=== PATIENT | female | born 1995 | race African-American/Black ===

== ENCOUNTER 2021-01-01 05:19 | Emergency (ER) | payer MEDICAID ==
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
[2021-01-01 07:21] LABS: ACETAMINOPHEN 0 ug/mL (10-30)
== END 2021-01-01 08:21 | disposition home or self-care (01) ==
LOC: JD.ED 05:19
DX: O99.343 Other mental disorders complicating pregnancy, third trimester (principal); F43.10 Post-traumatic stress disorder, unspecified; Z3A.30 30 weeks gestation of pregnancy; Z88.0 Allergy status to penicillin
CPT/HCPCS: 36415; 80053; 80143; 80179; 80307; 84443; 85025; 99284

== ENCOUNTER 2021-03-08 16:48 | Inpatient (IN) | payer MEDICAID ==
[2021-03-08] MEDS ORDERED: Calcium Carbonate 500 MG Tab.Chew PO PRN (19:17)
[2021-03-08] MEDS ORDERED: Sodium Chloride 0.9% 10 ML Syringe FLUSH PRN (19:17)
[2021-03-08] MEDS ORDERED: Nalbuphine 10 MG/1 ML Vial IVPUSH PRN (19:17)
[2021-03-08] MEDS ORDERED: Ondansetron 4 MG/2 ML SDV IVPUSH PRN (19:17)
[2021-03-08] MEDS ORDERED: Oxytocin/Lactated Ringers 10 UNIT/1,000 ML BAG IV SCH (19:30)
[2021-03-08] MEDS ORDERED: Misoprostol 25 MCG (1/4 of 100 MCG) Tab VAG ONE (20:00)
[2021-03-08] MEDS ORDERED: fentaNYL 100 MCG/2 ML SDV EPIDUR PRN (20:23)
[2021-03-08] MEDS ORDERED: Bupivacaine/fentaNYL/NS 100 ML Bag EPIDUR PRN (20:23)
[2021-03-08] MEDS ORDERED: ePHEDrine 50 MG/ML SDV IVPUSH PRN (20:23)
[2021-03-08] MEDS ORDERED: diphenhydrAMINE 50 MG/ML SDV IVPUSH PRN (20:23)
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
[2021-03-09] MEDS ORDERED: Misoprostol 25 MCG (1/4 of 100 MCG) Tab VAG SCH
[2021-03-09] MEDS: Misoprostol 25 MCG (1/4 of 100 MCG) Tab VAG SCH ×2 (00:47→05:11)
[2021-03-09] MEDS ORDERED: Oxytocin/Lactated Ringers 10 UNIT/1,000 ML BAG IV SCH (03:00)
[2021-03-09] MEDS: Lactated Ringers 1,000 ML IV SCH ×2 (07:27→08:30)
[2021-03-09] MEDS ORDERED: Nalbuphine 10 MG/1 ML Vial IVPUSH PRN (09:24)
--- NOTE | 2021-03-09 09:33 | PCM.SN.2 ---
- Free Text/Narrative Note: Progress note: Patient in labor. Has had 3 dose of Cytotec. Is tristan every 2 to 3 minutes. Mild in nature. Evaluation shows patient be comfortable. Vital signs are stable. Patient is afebrile. Abdomen is protuberant with fundal height consistent with dates. Baby in vertex presentation. Cervix is 2 cm, 80% effaced, soft, -3 station but well applied to the cervix, soft. AROM is accomplished with resultant mildly meconium stained amniotic fluid. heart tones are reassuring. Assessment: 39-1/7-week intrauterine , induction of labor going reasonably well. Small amount of progress noted. 2. Very mildly meconium-stained amniotic fluid. heart tones reassuring. Plan: 1. Monitor patient's progression if normal increase in intensity of contractions noted will start Pitocin augmentation. 2. Anticipate . Time Documentation
[2021-03-09] MEDS ORDERED: ePHEDrine 50 MG/ML SDV IVPUSH PRN ×2 (10:35→17:53)
[2021-03-09] MEDS ORDERED: diphenhydrAMINE 50 MG/ML SDV IVPUSH PRN ×3 (10:35→17:53)
[2021-03-09] MEDS ORDERED: Bupivacaine/fentaNYL/NS 100 ML Bag EPIDUR PRN (10:35)
[2021-03-09] MEDS ORDERED: fentaNYL 100 MCG/2 ML SDV EPIDUR PRN (10:35)
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
[2021-03-09] MEDS ORDERED: Metoclopramide 10 MG/2 ML SDV ONE (16:26)
[2021-03-09] MEDS ORDERED: Citric Acid/Sodium Citrate Solution 30 ML Cup ONE (16:26)
[2021-03-09] MEDS ORDERED: Terbutaline 1 MG/ML SDV ONE (16:27)
[2021-03-09] MEDS ORDERED: Azithromycin 500 MG in Sodium Chloride 0.9% 250 ML IV ONE (16:38)
[2021-03-09] MEDS ORDERED: Bupivacaine 0.5% 30 ML SDV ONE (16:44)
[2021-03-09] MEDS ORDERED: ceFAZolin 1 GM Vial ONE (16:47)
[2021-03-09] MEDS ORDERED: Lidocaine 2% with EPINEPHrine 1:200,000 20 ML SDV ONE (16:47)
[2021-03-09] MEDS ORDERED: Ondansetron 4 MG/2 ML SDV ONE (16:49)
[2021-03-09] MEDS ORDERED: Ketorolac 30 MG/ML SDV ONE (16:49)
[2021-03-09] MEDS ORDERED: Methylergonovine 0.2 MG/1 ML Amp ONE (16:57)
[2021-03-09] MEDS ORDERED: Bupivacaine 0.25% 10 ML SDV ONE (17:00)
[2021-03-09] MEDS ORDERED: Sodium Bicarbonate 8.4% 50 MEQ/50 ML SDV ONE (17:09)
[2021-03-09] MEDS ORDERED: Morphine PF 10 MG/10 ML SDV ONE (17:14)
[2021-03-09] MEDS ORDERED: Ondansetron 4 MG/2 ML SDV IVPUSH PRN (17:34)
[2021-03-09] MEDS ORDERED: fentaNYL 100 MCG/2 ML SDV IVPUSH PRN (17:34)
[2021-03-09] MEDS ORDERED: Meperidine 50 MG/ML Vial IVPUSH PRN (17:34)
[2021-03-09] MEDS ORDERED: Lactated Ringers 1,000 ML ONE (17:45)
[2021-03-09] MEDS ORDERED: Docusate Sodium 100 MG Cap PO PRN (17:53)
[2021-03-09] MEDS ORDERED: Ondansetron 4 MG/2 ML SDV IV PRN (17:53)
[2021-03-09] MEDS ORDERED: Naloxone 0.4 MG/ML SDV IVPUSH PRN (17:53)
[2021-03-09] MEDS ORDERED: Acetaminophen/oxyCODONE 325-5 MG Tab PO PRN (17:53)
--- NOTE | 2021-03-09 17:55 | PCM.POSTAN ---
POST ANESTHESIA ASSESSMENT - MENTAL STATUS Mental Status: Alert, Oriented - VITAL SIGNS Vital Signs: Last Vital Signs Temp 97.1 F 03/09/21 17:40 Pulse 98 03/09/21 17:40 Resp 12 03/09/21 17:53 BP 125/62 03/09/21 17:40 Pulse Ox 92 L 03/09/21 17:53 - RESPIRATORY Respiratory Status: Respiratory Rate WNL, Airway Patent, O2 Saturation Stable - CARDIOVASCULAR CV Status: Pulse Rate WNL, Blood Pressure Stable - GASTROINTESTINAL GI Status: No Symptoms - PAIN Pain Score: 0 - POST OP HYDRATION Hydration Status: Adequate & Stable
[2021-03-09] MEDS ORDERED: Dextrose 5%-Lactated Ringers 1,000 ML IV SCH (18:00)
[2021-03-09] MEDS ORDERED: Ibuprofen 800 MG Tab PO SCH (18:00)
--- NOTE | 2021-03-09 18:06 | PCM.OPNOTE ---
- General Post-Op/Procedure Note Date of Surgery/Procedure: 03/09/21 Operative Procedure(s): Primary low uterine segment transverse section through Pfannenstiel skin incision Findings: Preoperatively patient was noted to have heart rate 49 to 50 bpm rate. Scalp electrode was applied and confirmed rate. Ultrasound was also done at bedside. He was down for approximately 2 to 3 minutes at which time decision was made to proceed to stat section. Procedure was discussed very briefly with the patient and her significant other inccluding the need for expeditious delivery of the baby. Appeared to understand the potential risks and benefits for her and the baby. She gave verbal approval. Consent was signed after the section was performed. Uterus, tubes and ovaries were consistent with normal term . Amniotic fluid showed mildly. The baby is noted to have umbilical cord moderately tight around the neck x3. Baby weighed 8 pounds 4 ounces (3750 g). Baby had Apgars of 8 and 9 and was born at 1644 hrs. Baby was female. Pre Op Diagnosis: 1. 39-1/7-week intrauterine . 2. Nonreassuring heart tonesfetal intolerance of labor Post-Op Diagnosis: Same Primary Surgeon: Mamadou Herron Anesthesia Provider: Agnes Serrano Fluid Replacement, Intraop: 1,000 EBL in mLs: 1,200 Drain/Tube Comments:: Bladder catheter Complications: None Condition: Good Free Text/Narrative:: Intake & Output 03/09/21 03/09/21 03/09/21 06:59 14:59 22:59 Intake Total 120 Balance 120 Surgery duration: 28 minutes: Surgery duration: Procedure: The patient is appropriately consented. Patient was transferred to the room and placed in a sitting position. Spinal anesthesia was administered. After confirmation of adequate anesthesia patient was placed in a supine position with a wedge under her right side to facilitate left lateral positioning. The patient was prepped and draped in usual fashion after Jackson catheter was already placed . The anesthetic was checked and found to be adequate. 20 mL of Marcaine 0.5% was injected locally in the Pfannenstiel incision site. The Pfannenstiel skin incision was then made and carried down through skin, subcutaneous and fascial layers. The fascia was then undermined superiorly and inferiorly to allow for adequate operating room. The recti muscles midline and preperitoneal fat was bluntly dissected. Perito johanna cavity was entered longitudinally. The vesicouterine peritoneum was then incised transversely and bladder flap was developed. Myometrium was incised transversely to the level of the amniotic sac. This incision was extended bilaterally in a blunt fashion. The amniotic sac was then ruptured resulting in clear amniotic fluid. A hand is placed in the low uterine segment and the baby's head was brought forth through the incision. The baby was completely delivered using fundal pressure in a routine fashion. The nose and mouth were bulb suctioned. Baby's cord was clamped x2 cut and baby was handed off to attending cryptologist Dr Durán. Placenta was expressed after cord blood was obtained. Uterus was then exteriorized to allow for easier closure. The cervix was assessed and found to be dilated adequately to allow egress of blood. The uterus was closed in 2 layers. The first layer a running locked suture of 0 Monocryl, the second layer a running locked vertical mattress suture of 0 Monocryl. Hemostasis confirmed at this time. Sponge instrument needle counts are correct. The uterus was returned to the abdominal cavity and lateral gutters were cleared of blood. Once again sponge needle counts are correct. The anterior abdominal wall was closed with a #1 PDS suture from angle to angle. The subcutaneous area was found to be free of any bleeders. interrupted sutures of 3-0 Monocryl were used to reapproximate the subcutaneous layer.Skin was closed with a running subcuticular stitch of 3-0 Monocryl in a vertical mattress suture fashion using a [place] needle. Prineo mesh/glue was then applied to further approximate the incision. It should be noted that patient received 2 g of Ancef and 500 mg of azithromycin preoperatively for infection prophylaxis and had Pitocin infused after delivery of the placenta to facilitate uterine contraction. She also had sequential compression stockings in place for DVT prophylaxis. Patient was discharged from the operating room in satisfactory condition.
[2021-03-09] MEDS ORDERED: Terbutaline 1 MG/ML SDV IV ONE (19:30)
[2021-03-09] MEDS: Ibuprofen 800 MG Tab PO SCH (20:25)
[2021-03-09] MEDS: Simethicone 80 MG Tab.Chew PO SCH (20:26)
[2021-03-10] MEDS: Ibuprofen 800 MG Tab PO SCH ×3 (04:01→20:22)
--- NOTE | 2021-03-10 05:11 | PCM.SN.2 ---
- Free Text/Narrative Note: note: Postoperative day #1 status post Patient is doing well in the period. Minimal lochia, voiding well, ambulated without problems. Nursing without concerns. Control is good. Patient is afebrile, vital signs are stable Lungs are clear with good breath sounds in all lung madrigal Cardiovascular exam shows regular rate and rhythm. Abdomen is flat, soft, uterus is below the umbilicus and is firm and nontender. Incision is dry, intactPrineo mesh in place. Legs are nontender. Assessment: Postoperative/ day #1patient recovery going well. Plan: Routine care. Patient be discharged home within the next 24-48 hours. Time Documentation
--- NOTE | 2021-03-10 07:40 | PCM48HPAN ---
Post Anesthesia Note - EVALUATION WITHIN 48HRS OF ANESTHETIC Vital Signs in Normal Range: Yes Patient Participated in Evaluation: Yes Respiratory Function Stable: Yes Airway Patent: Yes Cardiovascular Function Stable: Yes Hydration Status Stable: Yes Pain Control Satisfactory: Yes Nausea and Vomiting Control Satisfactory: Yes Mental Status Recovered: Yes Vital Signs: Last Vital Signs Temp 98.1 F 03/10/21 02:28 Pulse 99 03/10/21 02:29 Resp 16 03/10/21 07:00 BP 105/49 L 03/10/21 02:28 Pulse Ox 91 L 03/10/21 07:00 - COMMENTS/OBSERVATIONS Free Text/Narrative:: o2 on for the night. Nurses states she has sleep apnea. Patient resting. Pain much better
[2021-03-10] MEDS: Citalopram 20 MG Tab PO SCH (08:30)
[2021-03-10] MEDS: Simethicone 80 MG Tab.Chew PO SCH ×4 (08:30→20:23)
[2021-03-10] MEDS: Prenatal Multivitamin with Calcium/Folic Acid/Iron Tab PO SCH (08:30)
[2021-03-10] MEDS: Acetaminophen/oxyCODONE 325-5 MG Tab PO PRN (18:03)
[2021-03-11] MEDS: Acetaminophen/oxyCODONE 325-5 MG Tab PO PRN (00:53)
[2021-03-11] MEDS: Ibuprofen 800 MG Tab PO SCH ×2 (04:37→12:04)
[2021-03-11] MEDS: Citalopram 20 MG Tab PO SCH (09:08)
[2021-03-11] MEDS: Simethicone 80 MG Tab.Chew PO SCH ×3 (09:08→17:54)
[2021-03-11] MEDS: Prenatal Multivitamin with Calcium/Folic Acid/Iron Tab PO SCH (09:08)
--- NOTE | 2021-03-11 09:24 | PCM.DCSUM1 ---
Discharge Summary - Discharge Data Discharge Date: 03/11/21 Discharge Disposition: Home, Self-Care 01 Condition: Good - Referral to Home Health Primary Care Physician: Satinder Ku MD - Patient Summary/Data Operative Procedure(s) Performed: Primary low uterine segment transverse section through Pfannenstiel skin incision Complications: None Consults: Consultations 03/09/21 22:49 Consult to Case Management/Professional Services Specialist [CONS] Routine Recommended Follow-up Testing/Procedures: Follow up in 2 weeks for post op / check Hospital Course: 25 y/o at 39 1/7 wks who presented for IOL. Induction begun with cytotec. Then transitioned to pitocin and AROM. Had bradycardia/prolonged deceleration develop during IOL and so taken for emergent . See operative note. Post op did well and was discharged home on POD#2 - Patient Instructions Diet: Regular Diet as Tolerated Activity: As Tolerated, No Lifting Over 10 Pounds Activity, Other: Pelvic rest for 6 weeks Driving: Do Not Drive Driving, Other: While taking pain medications Showering/Bathing: May Shower, No Tub Bathing/Swimming Wound/Incision Care: Keep Operative Site/Wound Site Clean and Dry Notify Provider of: Fever, Increased Pain, Swelling and Redness, Drainage, Nausea and/or Vomiting - Discharge Plan *PRESCRIPTION DRUG MONITORING PROGRAM REVIEWED*: No *COPY OF PRESCRIPTION DRUG MONITORING REPORT IN PATIENT SHILOH: No Prescriptions/Med Rec: oxyCODONE HCl/Acetaminophen [Percocet 5-325 mg Tablet] 1 - 2 each PO Q6H PRN #25 tablet PRN Reason: pain Home Medications: Home Meds Escitalopram Oxalate [Lexapro] 1 tab PO DAILY 01/01/21 [History] Mv-Mn/Iron/FA/Herbal/Digestive [ One Tablet] 1 tab PO DAILY 01/01/21 [History] risperiDONE [Risperidone] 1 tab PO DAILY 01/01/21 [History] oxyCODONE HCl/Acetaminophen [Percocet 5-325 mg Tablet] 1 - 2 each PO Q6H PRN #25 tablet 03/11/21 [Rx] Patient Handouts: Steps to Quit Smoking Referrals: Satinder Ku MD [Primary Care Provider] - (2 weeks for post op check ) - Discharge Summary/Plan Comment DC Time >30 min.: No Total # of Minutes for Discharge Time: 20 - Patient Data Vitals - Most Recent: Last Vital Signs Temp 37.2 C 03/11/21 04:36 Pulse 85 03/11/21 04:36 Resp 14 03/11/21 04:36 BP 114/54 L 03/11/21 04:36 Pulse Ox 94 L 03/11/21 04:36 Weight - Most Recent: 110.223 kg I&O - Last 24 hours: Intake & Output 03/10/21 03/11/21 03/11/21 22:59 06:59 14:59 Intake Total 60 Output Total 885 Balance -825 Med Orders - Current: Current Medications Citalopram Hydrobromide (Citalopram 20 Mg Tab) 40 mg PO DAILY [facility] Last Admin: 03/10/21 08:30 Dose: 40 mg Documented by: Diphenhydramine HCl (Diphenhydramine 50 Mg/Ml Sdv) 25 mg IVPUSH Q6H PRN PRN Reason: Itching or Nausea Docusate Sodium (Docusate Sodium 100 Mg Cap) 100 mg PO Q12H PRN PRN Reason: Constipation Last Admin: 03/10/21 08:30 Dose: 100 mg Documented by: Ephedrine Sulfate (Ephedrine 50 Mg/Ml Sdv) 5 mg IVPUSH SEECOMMENT PRN PRN Reason: Other Ibuprofen (Ibuprofen 800 Mg Tab) 800 mg PO Q8H [facility] Last Admin: 03/11/21 04:37 Dose: 800 mg Documented by: Naloxone HCl (Naloxone 0.4 Mg/Ml Sdv) 0.1 mg IVPUSH SEECOMMENT PRN PRN Reason: Respiratory Depression Ondansetron HCl (Ondansetron 4 Mg/2 Ml Sdv) 4 mg IV Q4H PRN PRN Reason: Nausea/Vomiting Oxycodone/Acetaminophen (Acetaminophen/Oxycodone 325-5 Mg Tab) 1 tab PO Q4H PRN PRN Reason: Pain (moderate 4-6) Oxycodone/Acetaminophen (Acetaminophen/Oxycodone 325-5 Mg Tab) 2 tab PO Q4H PRN PRN Reason: Pain (severe 7-10) Last Admin: 03/11/21 00:53 Dose: 2 tab Documented by: Prenat Multivit/Love/Iron/Folic Ac ( Multivitamin With Calcium/Folic Acid/Iron Tab) 1 each PO DAILY [facility] Last Admin: 03/10/21 08:30 Dose: 1 each Documented by: Simethicone (Simethicone 80 Mg Tab.Chew) 160 mg PO QID [facility] Last Admin: 03/10/21 20:23 Dose: 160 mg Documented by: Discontinued Medications Bupivacaine HCl (Bupivacaine 0.25% 10 Ml Sdv) 10 ml .ROUTE .STK-MED ONE Stop: 03/09/21 17:01 Bupivacaine HCl (Bupivacaine 0.5% 30 Ml Sdv) Confirm Administered Dose 30 ml .RO JESSICA .STK-MED ONE Stop: 03/09/21 16:45 Calcium Carbonate/Glycine (Calcium Carbonate 500 Mg Tab.Chew) 1,000 mg PO Q2H PRN PRN Reason: Indigestion Cefazolin Sodium (Cefazolin 1 Gm Vial) Confirm Administered Dose 2 gm .ROUTE .STK-MED ONE Stop: 03/09/21 16:48 Citric Acid/Sodium Citrate (Citric Acid/Sodium Citrate Solution 30 Ml Cup) Confirm Administered Dose 30 ml .ROUTE .STK-MED ONE Stop: 03/09/21 16:27 Diphenhydramine HCl (Diphenhydramine 50 Mg/Ml Sdv) 25 mg IVPUSH Q6H PRN PRN Reason: pruritis Diphenhydramine HCl (Diphenhydramine 50 Mg/Ml Sdv) 25 mg IVPUSH Q6H PRN PRN Reason: pruritis Diphenhydramine HCl (Diphenhydramine 50 Mg/Ml Sdv) 25 mg IVPUSH Q6H PRN PRN Reason: Pruritis Ephedrine Sulfate (Ephedrine 50 Mg/Ml Sdv) 5 mg IVPUSH ASDIRECTED PRN PRN Reason: Hypotension Ephedrine Sulfate (Ephedrine 50 Mg/Ml Sdv) 5 mg IVPUSH ASDIRECTED PRN PRN Reason: Hypotension Fentanyl (Fentanyl 100 Mcg/2 Ml Sdv) 100 mcg EPIDUR Q3H PRN PRN Reason: Pain Last Admin: 03/09/21 10:43 Dose: 100 mcg Documented by: Fentanyl (Fentanyl 100 Mcg/2 Ml Sdv) 100 mcg EPIDUR Q3H PRN PRN Reason: Pain Fentanyl (Fentanyl 100 Mcg/2 Ml Sdv) 50 mcg IVPUSH Q5M PRN PRN Reason: Pain Fentanyl/Bupivacaine HCl (Bupivacaine/Fentanyl/Ns 100 Ml Bag) 100 ml EPIDUR ASDIRECTED PRN PRN Reason: Pain Last Admin: 03/09/21 10:43 Dose: 100 ml Documented by: Fentanyl/Bupivacaine HCl (Bupivacaine/Fentanyl/Ns 100 Ml Bag) 100 ml EPIDUR ASDIRECTED PRN PRN Reason: Pain Oxytocin/Lactated Ringer's (Pitocin In Lr 10 Units/1,000 Ml) 10 unit in 1,000 mls @ 500 mls/hr IV .CONTINUOUS BENJAMIN Lactated Ringer's (Ringers, Lactated) 1,000 mls @ 100 mls/hr IV ASDIRECTED BENJAMIN Last Admin: 03/09/21 08:30 Dose: 100 mls/hr Documented by: Oxytocin/Lactated Ringer's (Pitocin In Lr 10 Units/1,000 Ml) 10 unit in 1,000 mls @ 12 mls/hr IV TITRATE BENJAMIN; Protocol Last Titration: 03/09/21 15:45 Dose: 6 munits/min, 36 mls/hr Documented by: Lactated Ringer's (Ringers, Lactated) Confirm Administered Dose 1,000 mls @ as directed .ROUTE .STK-MED ONE Stop: 03/09/21 17:46 Dextrose/Lactated Ringer's (Dextrose 5%-Lactated Ringers) 1,000 mls @ 125 mls/hr IV ASDIRECTED [facility] Stop: 03/10/21 01:59 Last Admin: 03/09/21 20:23 Dose: 125 mls/hr Documented by: Azithromycin 500 mg/ Sodium (Chloride) 250 mls @ 250 mls/hr IV ONETIME ONE Stop: 03/09/21 17:37 Last Admin: 03/09/21 16:38 Dose: 250 mls/hr Documented by: Ibuprofen (Ibuprofen 800 Mg Tab) 800 mg PO Q8H [facility] Last Admin: 03/09/21 22:18 Dose: Not Given Documented by: Ketorolac Tromethamine (Ketorolac 30 Mg/Ml Sdv) Confirm Administered Dose 30 mg .ROUTE .STK-MED ONE Stop: 03/09/21 16:50 Lidocaine/Epinephrine (Lidocaine 2% With Epinephrine 1:200,000 20 Ml Sdv) Confirm Administered Dose 20 ml .ROUTE .STK-MED ONE Stop: 03/09/21 16:48 Meperidine HCl (Meperidine 50 Mg/Ml Vial) 25 mg IVPUSH ONETIME PRN PRN Reason: Shivering Methylergonovine Maleate (Methylergonovine 0.2 Mg/1 Ml Amp) Confirm Administered Dose 0.2 mg .ROUTE .STK-MED ONE Stop: 03/09/21 16:58 Metoclopramide HCl (Metoclopramide 10 Mg/2 Ml Sdv) Confirm Administered Dose 10 mg .ROUTE .STK-MED ONE Stop: 03/09/21 16:27 Miscellaneous Medication (Phenylephrine Hcl In 0.9% Nacl 1 Mg/10 Ml Syringe) Confirm Administered Dose 1 mg .ROUTE .STK-MED ONE Stop: 03/09/21 16:48 Misoprostol (Misoprostol 25 Mcg (1/4 Of 100 Mcg) Tab) 50 mcg VAG ONETIME ONE Stop: 03/08/21 20:01 Last Admin: 03/08/21 20:12 Dose: 50 mcg Documented by: Misoprostol (Misoprostol 25 Mcg (1/4 Of 100 Mcg) Tab) 25 mcg VAG Q4HR [facility] Stop: 03/09/21 01:01 Last Admin: 03/09/21 00:19 Dose: Not Given Documented by: Misoprostol (Misoprostol 25 Mcg (1/4 Of 100 Mcg) Tab) 25 mcg VAG Q4H [facility] Stop: 03/09/21 04:01 Last Admin: 03/09/21 05:11 Dose: 25 mcg Documented by: Morphine Sulfate (Morphine Pf 10 Mg/10 Ml Sdv) Confirm Administered Dose 10 mg .ROUTE .STK-MED ONE Stop: 03/09/21 17:15 Nalbuphine HCl (Nalbuphine 10 Mg/1 Ml Vial) 10 mg IVPUSH Q3H PRN PRN Reason: Pain Last Admin: 03/09/21 09:38 Dose: 10 mg Documented by: Ondansetron HCl (Ondansetron 4 Mg/2 Ml Sdv) Confirm Administered Dose 4 mg .ROUTE .STK-MED ONE Stop: 03/09/21 16:50 Ondansetron HCl (Ondansetron 4 Mg/2 Ml Sdv) 4 mg IVPUSH ONETIME PRN PRN Reason: Nausea/Vomiting Sodium Bicarbonate (Sodium Bicarbonate 8.4% 50 Meq/50 Ml Sdv) Confirm Administered Dose 50 meq .ROUTE .STK-MED ONE Stop: 03/09/21 17:10 Sodium Chloride (Sodium Chloride 0.9% 10 Ml Syringe) 10 ml FLUSH ASDIRECTED PRN PRN Reason: Keep Vein Open Terbutaline Sulfate (Terbutaline 1 Mg/Ml Sdv) Confirm Administered Dose 1 mg .ROUTE .STK-MED ONE Stop: 03/09/21 16:28 Terbutaline Sulfate (Terbutaline 1 Mg/Ml Sdv) 0.25 mg IV ONETIME ONE Stop: 03/09/21 19:31 Last Admin: 03/09/21 16:28 Dose: 0.25 mg Documented by:
== END 2021-03-11 17:32 | disposition home or self-care (01) | DRG 787 ==
LOC: JD.OB 16:48 → OBSVTOIN 03-09 16:48 → JD.OB 03-09 16:49
PROVIDERS: ADMIT Obstetrics & Gynecology; ATTEND Obstetrics & Gynecology
PROC: 10D00Z1 Extraction of Products of Conception, Low, Open Approach (ICD-10-PCS; principal; 2021-03-09)
DX: O99.344 Other mental disorders complicating childbirth (principal); D62 Acute posthemorrhagic anemia; F41.9 Anxiety disorder, unspecified; F31.9 Bipolar disorder, unspecified; F43.10 Post-traumatic stress disorder, unspecified; O99.334 Smoking (tobacco) complicating childbirth; F17.210 Nicotine dependence, cigarettes, uncomplicated; Z20.822 Contact with and (suspected) exposure to COVID-19; O69.1XX0 Labor and delivery complicated by cord around neck, with compression, not applicable or unspecified; O77.0 Labor and delivery complicated by meconium in amniotic fluid; Z88.0 Allergy status to penicillin; Z79.899 Other long term (current) drug therapy; Z37.0 Single live birth; Z3A.39 39 weeks gestation of pregnancy; O99.02 Anemia complicating childbirth
CPT/HCPCS: 01967; 01968; 36415; 51702; 59025; 80306; 81001; 85025; 86592; A9270-GY; J0456; J0690; J1885; J2210; J2270; J2300; J2370; J2405; J2590; J3010; J3105; J3490; J7050; J7120; J7121; U0002

== ENCOUNTER 2022-01-23 09:38 | Day surgery (SDC) | payer SELFPAY ==
[~2022-01-23 09:38] MED LIST: Lactated Ringers 1,000 ML IV SCH; Lidocaine 1%/Sod Bicarbonate in NS 8.4% 1 ML Syringe IDERM PRN; Sodium Chloride 0.9% 10 ML Syringe FLUSH PRN; Sodium Chloride 0.9% 10 ML Syringe FLUSH SCH
[2022-01-23] MEDS ORDERED: fentaNYL 100 MCG/2 ML SDV ONE ×2 (10:09→11:52)
[2022-01-23] MEDS ORDERED: Midazolam 1 MG/ML 2 ML SDV ONE (10:09)
[2022-01-23] MEDS ORDERED: Propofol 200 MG/20 ML SDV ONE ×2 (10:09→11:48)
[2022-01-23] MEDS ORDERED: Lidocaine 1% with EPINEPHrine 1:100,000 10 ML MDV ONE (10:56)
[2022-01-23] MEDS ORDERED: Ondansetron 4 MG/2 ML SDV ONE (11:16)
[2022-01-23] MEDS ORDERED: Scopolamine 1.5 MG Transdermal Patch TRDERM ONE (11:20)
[2022-01-23] MEDS ORDERED: Albuterol 0.083% 2.5 MG/3 ML Neb Soln ONE ×2 (11:27→11:54)
[2022-01-23] MEDS ORDERED: Albuterol 0.083% 2.5 MG/3 ML Neb Soln NEB ONE ×2 (12:00→12:15)
== END 2022-01-23 13:22 | disposition home or self-care (01) ==
LOC: JD.SDS 09:38
PROVIDERS: ATTEND Surgery
DX: K27.9 Peptic ulcer, site unspecified, unspecified as acute or chronic, without hemorrhage or perforation (principal); K64.4 Residual hemorrhoidal skin tags; F41.9 Anxiety disorder, unspecified; F31.9 Bipolar disorder, unspecified; G47.00 Insomnia, unspecified; F17.200 Nicotine dependence, unspecified, uncomplicated; J45.909 Unspecified asthma, uncomplicated; Z88.0 Allergy status to penicillin; Z79.83 Long term (current) use of bisphosphonates; Z79.899 Other long term (current) drug therapy; E66.9 Obesity, unspecified; Z68.33 Body mass index [BMI] 33.0-33.9, adult; Z98.890 Other specified postprocedural states
CPT/HCPCS: 43239; 46250; 81025; A9270; J2250; J2405; J2704; J3010; J7120; 00731